=== PATIENT | male | born 1940 | race Caucasian/White ===

== ENCOUNTER 2019-11-30 12:00 | Emergency (ER) | payer MEDICARE, BC, SELFPAY ==
[2019-11-30 12:06] VITALS: BP 156/100; PULSE 100; RESP 18; TEMP 37.3; O2SAT 99
--- NOTE | 2019-11-30 13:17 | ED.LOWEXIN ---
HPI - Extremity Injury (Lower) General Chief Complaint: Extremity Injury, Lower Stated Complaint: laceration to right leg Time Seen by Provider: 11/30/19 12:08 Source: patient Mode of arrival: ambulatory Limitations: no limitations History of Present Illness HPI Narrative: This patient is an 78 year old male who presents for evaluation of right lower extremity laceration. He states he accidentally sprayed his left with water from a continuous washer operator. She was unable to get the bleeding to stop so he came to the ER . He states his tetanus is up to date. He has minimal pain. He is able to walk without pain. Related Data Allergies Allergy/AdvReac Type Severity Reaction Status Date / Time No Known Allergies Allergy Unverified 02/27/19 17:18 Review of Systems Review of Systems: All systems reviewed & are unremarkable except as noted in HPI and below Constitutional: Constitutional: Denies chills and Denies fever(s) Neurologic: Denies dizziness, Denies focal weakness and Denies numbness PMFSH Social History Social History Smoking status: Former smoker Second hand tobacco smoke exposure: No Smoking end date: 04/12/77 Alcohol intake: current Exam Const: General: no acute distress and alert Orientation/consciousness: patient oriented x3 Eyes: EOM: EOMs intact bilaterally Resp: Effort & Inspection: normal respiratory effort Cardio: Peripheral pulses: Peripheral pulses 2+ throughout, posterior tibial pulses present bilateral and dorsalis pedis present bilateral Skin: Other: right leg with zigzag linear superficial laceration. There are 2 small areas that are a little deeper into dermis both 1 cm. no acute bleeding. Neuro: General: patient oriented x3 and moves all extremities Extrem: General: no pedal edema Other: FROM of all extremities Course Reevaluation(s) Reevaluation #1: I discussed with patient wound management. He did not want to sutures so I bandaged with steri strips, 3,4 Date: 11/30/19 Time: 13:17 Vital Signs Vital signs: Vital Signs Temperature 99.2 F 11/30/19 12:06 Pulse Rate 100 11/30/19 12:06 Respiratory Rate 18 11/30/19 12:06 Blood Pressure 156/100 H 11/30/19 12:06 Pulse Oximetry 99 11/30/19 12:06 Temperature 99.2 F 11/30/19 12:06 Pulse Rate 78 11/30/19 13:33 Respiratory Rate 20 08/20/20 13:33 Blood Pressure 148/73 H 11/30/19 13:33 Pulse Oximetry 99 11/30/19 13:33 Procedures Laceration Laceration 1: Date: 11/30/19 Time: 13:00 Site: lower extremity (right) Size (cm): 1 Description: linear Depth: simple, single layer Local Anesthetic: none ====== Skin Level ====== Skin layer closed with: steri strips (3) ====== Subcutaneous Layer ====== ====== Muscle Layer ====== ====== Tendon Layer ====== Laceration 2: Date: 11/30/19 Time: 13:00 Site: lower extremity Side (If applicable): right Description: linear Depth: simple, single layer Local Anesthetic: none ====== Skin Level ====== Skin layer closed with: steri strips (4) ====== Subcutaneous Layer ====== ====== Muscle Layer ====== ====== Tendon Layer ====== Discharge Plan Discharge Clinical Impression: Laceration of leg, right, multiple sites Qualifiers: Encounter type: initial encounter Qualified Code(s): S81.811A - Laceration without foreign body, right lower leg, initial encounter Patient Disposition: Home, Self-Care Condition: Stable Instructions: Laceration (ED), Laceration Without Closure (ED), Acute Wounds (ED) Additional Instructions: Today you were evaluated for a laceration to your leg. The area with the steri strips you can keep on for 5-7 days. The area with vaseline gauze you keep clean for soap and water daily and redress if need. Watch for signs of infection. Prescriptions: No Action allopurinol 300 mg t
[2019-11-30 13:33] VITALS: BP 148/73; PULSE 78; RESP 20; O2SAT 99
== END 2019-11-30 13:35 | disposition home or self-care (01) ==
PROVIDERS: Emergency Provider General Practice; PCP Internal Medicine
DX: S81.811A Laceration without foreign body, right lower leg, initial encounter (principal); Z87.891 Personal history of nicotine dependence; W29.8XXA Contact with other powered hand tools and household machinery, initial encounter
CPT/HCPCS: 99282

== ENCOUNTER 2022-05-29 08:37 | Outpatient (CLI) | payer MEDICARE, SELFPAY ==
[2022-05-29 11:20] LABS: Alanine Aminotransferase 24 U/L (6-50); Alkaline Phosphatase 66 U/L (38-126); Anion Gap 4 mmol/L (8-16); Aspartate Amino Transferase 30 U/L (17-59); Blood Urea Nitrogen 19 mg/dL (9-20); Calcium 7.7 mg/dL (8.4-10.2); Carbon Dioxide 28 mmol/L (22-30); Chloride 105 mmol/L (98-107); Estimated Glomerular Filt Rate > 60; Glucose 103 mg/dL (65-110); Potassium 3.6 mmol/L (3.4-5.0); Sodium 137 mmol/L (137-145); Uric Acid 6.8 mg/dL (3.5-8.5)
[2022-06-01 13:30] LABS: Cholesterol 87 mg/dL (0-200); HDL Direct 19 mg/dL; Triglycerides 97 mg/dL (<150)
[2022-06-01 13:41] LABS: LDL Cholesterol Direct 51 mg/dL
== END 2022-05-29 08:38 | disposition home or self-care (01) ==
LOC: ANHGOSHLAB 08:38
PROVIDERS: PCP Family Medicine; Visit Provider Family Medicine
DX: Z13.228 Encounter for screening for other metabolic disorders (principal); M10.9 Gout, unspecified; I10 Essential (primary) hypertension
CPT/HCPCS: 36415; 80053; 80061; 84550

== ENCOUNTER 2022-12-28 17:12 | Emergency (ER) | payer MEDICARE, SELFPAY ==
--- NOTE | ~2022-12-28 | XR_ITS ---
EXAMINATION: XR foot RT min 3V DATE: 12/28/2022 17:40 INDICATION: Right foot injury. TECHNIQUE: 4 views of right foot were obtained. COMPARISON: None. FINDINGS: There is moderate hallux valgus. No fracture. There is mild osteoarthritis of some of the i nterphalangeal joints and midfoot joints. There are enthesophytes at the posterior and plantar aspect s of calcaneal tuberosity. IMPRESSION: 1. Mild polyarticular osteoarthritis. 2. Moderate hallux lungs. Reviewed, dictated and finalized at location E.
--- NOTE | ~2022-12-28 | XR_ITS ---
EXAMINATION: XR knee RT 3V DATE: 12/28/2022 17:40 INDICATION: Right knee injury. TECHNIQUE: 3 views of right knee were obtained. COMPARISON: None. FINDINGS: Bone alignment is normal. There is a possible fracture of medial aspect of medial tibial pl ateau. There is mild tricompartmental osteoarthritis. There is chondrocalcinosis of the menisci. Ther e are dystrophic calcifications about the knee joint capsule. There is a small knee joint effusion. IMPRESSION: 1. Possible fracture of medial aspect of medial tibial plateau. Correlate for focal tenderness. 2. Mild right knee osteoarthritis. 3. Small right knee joint effusion. Reviewed, dictated and finalized at location E. IMPRESSION: 1. Possible fracture of medial aspect of medial tibial plateau. Correlate for f ocal tenderness. 2. Mild right knee osteoarthritis. 3. Small right knee joint effusion.
--- NOTE | ~2022-12-28 | XR_ITS ---
EXAMINATION: XR ankle RT min 3V DATE: 12/28/2022 17:40 INDICATION: Right ankle injury and lateral pain. TECHNIQUE: 4 views of right ankle were obtained. COMPARISON: Right ankle radiographs 11/20/2005 FINDINGS: Bone alignment is normal. No fracture. There is mild midfoot osteoarthritis. There is mild ankle joint osteoarthritis. There are enthesophytes at the posterior and plantar aspects of calcaneal tuberosity. IMPRESSION: 1. Mild polyarticular osteoarthritis. Reviewed, dictated and finalized at location E.
--- NOTE | 2022-12-28 17:28 | ED.LOWEXIN ---
HPI - Extremity Injury (Lower) General Chief Complaint: Extremity Injury, Lower Stated Complaint: Pain in knee and ankle Time Seen by Provider: 12/28/22 17:28 Source: patient Mode of arrival: ambulatory Limitations: no limitations History of Present Illness HPI Narrative: Patient is an 82-year-old male that presents with right knee and ankle pain after rolling ankle out and to sting leg. Patient reports pain to lateral knee and ankle. Patient states he has a primary care provider appointment tomorrow and would just like to have x-rays to discuss fall with primary doctor. Patient able to walk with a cane but it is painful. Denies any numbness, tingling or weakness. Related Data Home Medications Medication Instructions Recorded Confirmed indomethacin 25 mg capsule 25 mg PO TID PRN 05/21/22 05/21/22 Allergies Allergy/AdvReac Type Severity Reaction Status Date / Time No Known Allergies Allergy Verified 05/21/22 10:55 Review of Systems Review of Systems: All systems reviewed & are unremarkable except as noted in HPI and below Constitutional: Constitutional: Denies body ache(s), Denies chills, Denies fatigue, Denies fever(s), Denies headache(s), Denies malaise and Denies weakness Eyes: Eyes: Denies blurry vision, Denies irritation and Denies loss of vision ENT: Denies otalgia, Denies headache(s), Denies nasal discharge, Denies sinus pain and Denies sore throat Cardiovascular: Cardiovascular: Denies chest pain, Denies irregular heart rhythm and Denies dyspnea Respiratory: Respiratory: Denies dyspnea Gastrointestinal: Gastrointestinal: Denies abdominal pain, Denies melena, Denies hematochezia, Denies diarrhea, Denies nausea and Denies vomiting Musculoskeletal: Musculoskeletal: Denies back pain, Denies myalgias and Reports arthralgias Integumentary/Breasts: Skin/Breast: Denies pruritus and Denies rash Neurologic: Denies headache(s), Denies loss of vision and Denies weakness Psychiatric: Psychiatric: Reports no additional psychiatric complaints Endocrine: Endocrine: Denies fatigue PMFSH Family History Family History Sibling Patient's sister is in good health Family history of cardiovascular disease, Onset Age: 42 Mother Family history of malignant neoplasm, Onset Age: 72 Father Family history of malignant neoplasm, Onset Age: 75 Social History Social History Smoking status: Current every day smoker Tobacco type: cigars Second hand tobacco smoke exposure: No Smoking end date: 04/12/77 Alcohol intake: current Substance use: never Substance use type: does not use Lack of Transportation: No Lack of Food: Never True Current Housing: I Have Housing Concerned About Future Housing: No Difficulty Paying Gas/Electric Bills: No Difficulty Paying for Meds: No Currently Unemployed: No Education: Master's Degree or Higher Difficulty w/ Childcare or Family Care: No Living arrangements: with family Occupation/Education: retired Gender identity (if verbalized by the patient): Male Sexual Orientation (if Verbalized by the Patient): Straight or Heterosexual Agree to blood products: Yes Comments At time of signature, agree with nursing past medical, surgical, social and family history. There is no relevant family history pertinent to the presenting complaint. Exam Const: General: cooperative, healthy appearing, comfortable, no acute distress and well nourished Nutritional Appearance: well nourished Orientation/consciousness: patient oriented x3 Limitations: no limitations HENMT: Head: normal to inspection, normocephalic and atraumatic Ears: hearing grossly normal bilaterally and external ears normal Face/Nose/Sinus: Normal external nose present, normal facial exam and face symmetric Face and sinus: normal facial exam and face symm
[2022-12-28 17:44] VITALS: BP 146/97; PULSE 85; RESP 16; TEMP 36.8; O2SAT 100
== END 2022-12-28 18:18 | disposition home or self-care (01) ==
PROVIDERS: Emergency Provider Nurse Practitioner Family; PCP Family Medicine
DX: S93.401A Sprain of unspecified ligament of right ankle, initial encounter (principal); S96.911A Strain of unspecified muscle and tendon at ankle and foot level, right foot, initial encounter; X50.9XXA Other and unspecified overexertion or strenuous movements or postures, initial encounter; M25.561 Pain in right knee; M10.9 Gout, unspecified; M19.90 Unspecified osteoarthritis, unspecified site
CPT/HCPCS: 73562; 73610; 73630; 99214; G0463; L1830

== ENCOUNTER 2023-02-23 14:54 | Outpatient (CLI) | payer MEDICARE, SELFPAY ==
--- NOTE | ~2023-02-23 | XR_ITS ---
XR wrist RT min 3V DATE: 02/23/2023 15:02 INDICATION: Right wrist injury TECHNIQUE: 3 views of right wrist COMPARISON: None FINDINGS: There is diffuse osteopenia. There is prominent chondrocalcinosis at the triangular cartilage and multiple carpal joints. There is severe osteoarthritic change at the first carpometacarpal joint. There is moderate osteophyt ic change at the first carpophalangeal joint. There is chondrocalcinosis and mild osteoarthritis at t he second through fifth metacarpophalangeal joints. A transverse lucency through the waist of the navicular bone is suggested on the AP view. Navicular w aist fracture is not excluded. Consider CT or MR wrist examination to further evaluate possible navic ular fracture. 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
== END 2023-02-23 14:55 | disposition home or self-care (01) ==
LOC: ANHASCIMG 14:55
PROVIDERS: PCP Family Medicine; Visit Provider Family Medicine
DX: M11.231 Other chondrocalcinosis, right wrist (principal); M11.241 Other chondrocalcinosis, right hand; M19.041 Primary osteoarthritis, right hand; M85.80 Other specified disorders of bone density and structure, unspecified site
CPT/HCPCS: 73110

== ENCOUNTER 2023-03-13 12:42 | Emergency (ER) | payer MEDICARE, SELFPAY ==
--- NOTE | ~2023-03-13 | XR_ITS ---
XR chest 2V 03/13/2023 13:13 Indication: Cough and shortness of breath Procedure: 2 view chest Comparison: 02/27/2019 Findings: Masslike density left mid thorax posteriorly and laterally. There is airspace disease of th e left mid and lower lung. Right lung clear. No pneumothorax. No acute osseous abnormality. Impression: 1: Masslike density left mid and lower thorax which appears to be pleural-based. Differential diagnos is includes loculated effusion and malignancy. Consider correlation with contrast-enhanced CT chest. 2: Left basilar airspace consolidation may represent compressive atelectasis and/or pneumonia. Reviewed, dictated and finalized at location A. CTION MACHINE SETTER Impression: 1: Masslike density left mid and lower thorax which appears to be pleural-based . Differential diagnosis includes loculated effusion and malignancy. Consider c orrelation with contrast-enhanced CT chest. 2: Left basilar airspace consolidation may represent compressive atelectasis a nd/or pneumonia.
[2023-03-13 12:54] VITALS: BP 134/77; PULSE 86; RESP 16; TEMP 36.5; O2SAT 95
[2023-03-13 13:23] VITALS: PULSE 95; O2SAT 97
--- NOTE | 2023-03-13 13:32 | ED.URI ---
HPI - URI/Sore Throat General Chief Complaint: Upper Respiratory Infection Stated Complaint: Flu Time Seen by Provider: 03/13/23 13:45 Source: patient, family, RN notes reviewed and old records reviewed Mode of arrival: ambulatory (placed in wheelchair) Limitations: no limitations History of Present Illness HPI Narrative: 82 year old male accompanied by family with complaints of being weak with cough and also having some increased dyspnea with activity for the past 4 days. Patient reports that he had to stop on the way in here to rest he was short of breath. Patient reports that he has some pain in the left lateral rib area that wrap around his side to the back. Patient reports that he has had a productive cough of yellow mucous and today he noted some maroon colored drainage also today X4 times. Patient reports he was seen recently for possible tibia plateau fracture that orthopedic reported was not a fracture and did receive some physical therapy. Patient recent had a fall also and hurt his right wrist and is wearing brace to his wrist and hand. MD elicited complaint: cough and other (dyspnea) Onset (ago): day(s) (symptoms reported for 4 days) Description of mucous: yellow and other (maroon colored ) Able to tolerate fluids by mouth: Yes Treatments prior to arrival: other (tramadol) Related Data Home Medications Medication Instructions Recorded Confirmed indomethacin 25 mg capsule 25 mg PO TID PRN 05/21/22 12/29/22 Allergies Allergy/AdvReac Type Severity Reaction Status Date / Time No Known Allergies Allergy Verified 03/13/23 18:17 Review of Systems Review of Systems: CONSTITUTIONAL: Reports malaise,no chills, sweats, or fever. EYES: Denies visual changes, redness, or discharge. ENT: Reports rhinorrhea, congestion, sinus pain, otalgia and sore throat. CARDIOVASCULAR: Denies chest pain, palpitations, or edema. RESPIRATORY: Reports cough.? Reports dyspnea. GASTROINTESTINAL: Denies abdominal pain, nausea, vomiting, diarrhea SKIN: Denies rash or itching. MUSCULOSKELETAL: Denies myalgia. NEUROLOGIC: Denies headache. All systems reviewed & are unremarkable except as noted in HPI and below PMFSH Past Medical History Medical History (Updated 03/14/23 @ 00:00 by Linda Foley) Gout Surgical History Surgical History (Updated 03/13/23 @ 19:29 by Vandana Patiño NP) History of appendectomy History of weight loss surgery Hx of cataract surgery Family History Family History Sibling Patient's sister is in good health Family history of cardiovascular disease, Onset Age: 42 Mother Family history of malignant neoplasm, Onset Age: 72 Father Family history of malignant neoplasm, Onset Age: 75 Social History Social History Smoking status: Current every day smoker Tobacco type: cigars Second hand tobacco smoke exposure: No Smoking end date: 04/12/77 Alcohol intake: current Substance use: never Substance use type: does not use Lack of Transportation: No Lack of Food: Never True Current Housing: I Have Housing Concerned About Future Housing: No Difficulty Paying Gas/Electric Bills: No Difficulty Paying for Meds: No Currently Unemployed: No Education: Master's Degree or Higher Difficulty w/ Childcare or Family Care: No Living arrangements: with family Occupation/Education: retired Gender identity (if verbalized by the patient): Male Sexual Orientation (if Verbalized by the Patient): Straight or Heterosexual Agree to blood products: Yes Comments At time of signature, agree with nursing past medical, surgical, social and family history. There is no relevant family history pertinent to the presenting complaint Exam Narrative: GENERAL:ill-appearing, well-nourished, and in no acute distress. HEAD: Norm
== END 2023-03-13 14:54 | disposition short-term general hospital (02) ==
PROVIDERS: Emergency Provider Registered Nurse; PCP Family Medicine
DX: R91.8 Other nonspecific abnormal finding of lung field (principal); R06.00 Dyspnea, unspecified; Z20.822 Contact with and (suspected) exposure to COVID-19; Z87.891 Personal history of nicotine dependence; M10.9 Gout, unspecified
CPT/HCPCS: 71046; 87426; 87804; 99213; C9803; G0463

== ENCOUNTER 2023-03-13 15:06 | Emergency (ER) | payer MEDICARE, SELFPAY ==
[2023-03-13] VITALS (37 sets, daily range): BP systolic 63–158; BP diastolic 42–98; PULSE 64–166; RESP 15–29; TEMP 36.3–36.5; O2SAT 91–97
--- NOTE | ~2023-03-13 | CT_ITS ---
EXAMINATION: CT diagnostic chest w con DATE: 03/13/2023 20:08 INDICATION: Masslike density left thorax TECHNIQUE: Computed tomography (CT) of the chest was performed with 75 cc Omnipaque 350 intravenous c ontrast. The dose-length product was 245.79 mGy-cm. Automated exposure control and iterative reconstr uction technique were employed. COMPARISON: Chest x-ray dated 03/13/2023 FINDINGS: Large loculated left pleural effusion. There is left hilar lymphadenopathy. There is airspa ce consolidation, likely compressive atelectasis, although superimposed pneumonia is not excluded. He art size normal. Mild mediastinal lymphadenopathy. Calcified granuloma right lower lobe. IMPRESSION: 1. Large loculated left pleural effusion with underlying airspace consolidation which may represent a telectasis or pneumonia. 2: Mediastinal and left hilar lymphadenopathy, likely reactive. Reviewed, dictated and finalized at location A. AULIC LIFT DRIVER IMPRESSION: 1. Large loculated left pleural effusion with underlying airspace consolidation which may represent atelectasis or pneumonia. 2: Mediastinal and left hilar lymphadenopathy, likely reactive.
--- NOTE | 2023-03-13 18:15 | ED.SOB ---
HPI - SOB/Dyspnea General Chief Complaint: Recheck/Abnormal Lab/Rx Stated Complaint: sent for ct scan/ low o2 Time Seen by Provider: 03/13/23 18:14 Source: patient Limitations: no limitations History of Present Illness HPI Narrative: This is an 82 yo male who presents from urgent care with concern for findings on a CXR and low Spo2; recommending CT scan. He states for the past 4 days he has had decreased strength. This morning, he had a cough productive of yellow sputum initially. He got 3 shots 3 months ago (covid, RSV, and flu). Denies any chest pain. Deltaly smokes cigars daily but not for the past 5 days. He is having to ambulate with a cane. He had a subjective fever yesterday and was diaphoretic. Denies lower extremity edema. Has been taking ibuprofen at home. Related Data Home Medications Medication Instructions Recorded Confirmed indomethacin 25 mg capsule 25 mg PO TID PRN 05/21/22 12/29/22 Allergies Allergy/AdvReac Type Severity Reaction Status Date / Time No Known Allergies Allergy Verified 03/13/23 18:17 [facility] Past Medical History Medical History (Updated 03/15/23 @ 02:22 by Ernestine Garcia MD) Gout Surgical History Surgical History (Updated 03/13/23 @ 19:29 by Vandana Patiño NP) History of appendectomy History of weight loss surgery Hx of cataract surgery Family History Family History Sibling Patient's sister is in good health Family history of cardiovascular disease, Onset Age: 42 Mother Family history of malignant neoplasm, Onset Age: 72 Father Family history of malignant neoplasm, Onset Age: 75 Social History Social History (Updated 03/15/23 @ 02:04 by Ernestine Garcia MD) Social History: Former long distance runner Smoking status: Current every day smoker Tobacco type: cigars Second hand tobacco smoke exposure: No Smoking end date: 04/12/77 Alcohol intake: current Substance use: never Substance use type: does not use Lack of Transportation: No Lack of Food: Never True Current Housing: I Have Housing Concerned About Future Housing: No Difficulty Paying Gas/Electric Bills: No Difficulty Paying for Meds: No Currently Unemployed: No Education: Master's Degree or Higher Difficulty w/ Childcare or Family Care: No Living arrangements: with family Occupation/Education: retired Gender identity (if verbalized by the patient): Male Sexual Orientation (if Verbalized by the Patient): Straight or Heterosexual Agree to blood products: Yes Exam Narrative: GENERAL: thin male; in no acute distress but appears unwell. HEAD: Normocephalic, atraumatic. EYES: Grossly normal. Non icteric. ENT: Nares clear, no rhinorrhea or epistaxis. NECK: Supple. CHEST: Diminished at the base but otherwise clear to auscultation. No respiratory distress. HEART: Regular rate and rhythm. ABDOMEN: Soft, nontender, nondistended. EXTREMITIES: Normal range of motion. No edema. SKIN: Warm, dry, no rash. NEURO: No focal deficits. Alert and oriented x3. PSYCH: Normal mood and affect. Course Vital Signs Vital signs: Vital Signs Temperature 97.7 F 03/13/23 15:07 Pulse Rate 64 03/13/23 15:07 Respiratory Rate 16 03/13/23 15:07 Blood Pressure 142/63 H 03/13/23 15:07 Pulse Oximetry 95 03/13/23 15:07 Temperature 97.3 F L 03/13/23 19:37 Pulse Rate 111 H 03/14/23 01:16 Respiratory Rate 21 H 03/14/23 01:01 Blood Pressure 140/56 L 03/14/23 01:16 Pulse Oximetry 95 03/14/23 01:16 Oxygen Delivery Room Air 03/13/23 18:08 Transfer Transfered to: [facility] Transfer comments: see MDM/note MDM - SOB/Dyspnea MDM Narrative Medical decision making narrative: Patient presents with concern for findings on CXR at urgent care in addition to low SpO2. He has been complainign of decreased strength for the past 4 days and a co
--- NOTE | 2023-03-13 18:29 | ECG_ITS ---
Measurements Intervals [place] Rate: 124 P: [place]: 0 QRS: -47 QRSD: 150 T: 0 QT: 325 QTc: 468 Interpretive Statements SINUS TACHYCARDIA WITH PREMATURE ATRIAL CONTRACTIONS WITH INTERMITTENT SUPRAVENTRICULAR TACHYCARDIA BASELINE ARTIFACT RIGHT BUNDLE BRANCH BLOCK LEFT ANTERIOR FASCICULAR BLOCK [QRS AXIS <= -45, QR IN I, RS IN II] MODERATE VOLTAGE CRITERIA FOR LVH, CONSIDER NORMAL VARIANT ABNORMAL ECG NO PREVIOUS ECG AVAILABLE FOR COMPARISON Electronically Signed On 03-14-2023 11:51:37 AIRCRAFT MAINTENANCE DIRECTOR by Ric Kovacs M.D.
[2023-03-13 18:47] LABS: Alveolar/Arterial O2 Gradient 54.6 mmHg; Base Excess ABG -1.9 mEq/l (+/-2.0); Fractional Inspired Oxygen 21 %; HCO3 ABG 19.9 mEq/l (22.0-26.0); Oxygen Content ABG 16.4 %vol (16.0-22.0); Oxygen Saturation ABG 94.4 % (95.0-100.0); Oxyhemoglobin 90.1 % THb (90.0-100.0); PCO2 ABG 26.2 mmHg (35.0-45.0); PO2 ABG 63.8 mmHg (80.0-100.0); PO2 FiO2 Ratio Arterial Blood 3.04 %; Total Hemoglobin 12.9 g/dL (12.0-18.0); pH ABG 7.498 (7.350-7.450)
[2023-03-13 18:48] LABS: Device ROOM AIR; Modified Allen's Test Pass; Site Drawn LEFT RADIAL
[2023-03-13 19:10] LABS: Basophils Absolute Auto 0.1 K/mm3 (0.0-0.1); Basophils Percent Auto 0.3 % (0.2-1.2); Eosinophils Absolute Auto 0.1 K/mm3 (0-0.3); Eosinophils Percent Auto 0.3 % (0-4.4); Hematocrit 39.5 % (42.0-52.0); Hemoglobin 13.2 g/dL (14.0-18.0); Immature Granulocyte Absolute 0.18 K/mm3 (0.00-0.031); Immature Granulocyte Percent A 0.9 % (0-0.5); Lymphocytes Absolute Auto 0.28 K/mm3 (0.9-3.2); Lymphocytes Percent Auto 1.5 % (18.3-44.2); Mean Corpuscular HGB Conc 33.4 g/dl (32-36); Mean Corpuscular Hemoglobin 31.7 pg (26-34); Mean Corpuscular Volume 94.7 fl (80-100); Mean Platelet Volume 10.3 fl (7.4-10.4); Monocytes Absolute Auto 1.2 K/mm3 (0.1-0.6); Monocytes Percent Auto 6.3 % (2.6-8.5); Neutrophils Absolute Auto 17.5 K/mm3 (1.3-6.7); Neutrophils Percent Auto 90.7 % (45.5-73.1); Platelet Count Result 198 k/mm3 (150-375); Red Blood Count 4.17 M/mm3 (4.6-6.20); White Blood Count 19.3 K/mm3 (4.5-10.0)
[2023-03-13 19:23] LABS: Alanine Aminotransferase 30 U/L (6-50); Albumin Level 3.6 g/dL (3.5-5.1); Alkaline Phosphatase 102 U/L (38-126); Anion Gap 13 mmol/L (8-16); Aspartate Amino Transferase 49 U/L (17-59); Bilirubin,Total 1.7 mg/dL (0.2-1.3); Blood Urea Nitrogen 34 mg/dL (9-20); Calcium 7.8 mg/dL (8.4-10.2); Carbon Dioxide 22 mmol/L (22-30); Chloride 96 mmol/L (98-107); Creatine Kinase 53 U/L (55-170); Estimated CRCL calculation 34 ml/min; Estimated Glomerular Filt Rate 45; Glucose 103 mg/dL (65-110); Lipase 20 U/L (23-300); Sodium 131 mmol/L (137-145)
[2023-03-13] MEDS: LACTATED RINGERS 1,000 ML 999 ML IV CONT (19:30)
[2023-03-13] MEDS: MORPHINE SULFATE (*CRX) 2 MG/ML INJ IV PUSH (19:30)
[2023-03-13 19:37] LABS: Troponin I 0.037 ng/mL (0.000-0.034)
--- NOTE | 2023-03-13 19:40 | PC.NURSE ---
This RN took over care of pt @191
[2023-03-13] MEDS: dilTIAZem HCl INJ 25 MG/5 ML VIAL 20 MG IV PUSH (19:53)
[2023-03-13] MEDS: SODIUM CHLORIDE 0.9% IV 1,000 ML 999 ML IV CONT (20:31)
[2023-03-13] MEDS: POTASSIUM PHOS/SODIUM PHOS 250 MG TABLET PO (20:31)
[2023-03-13] MEDS: dilTIAZem HCl INJ 25 MG/5 ML VIAL 30 MG IV PUSH (21:36)
[2023-03-13] MEDS: PIPERACILLN/TAZ 3.375GM/NS50ML 3.375 GM/50 ML BAG IVPB (21:53)
[2023-03-13] MEDS: MAGNESIUM SULF 2 GM/WATER 50ML 2 GM/50 ML BAG IVPB (21:58)
[2023-03-13] MEDS: dilTIAZem HCL 12 HR 60 MG CAP.12HR PO (22:26)
--- NOTE | 2023-03-13 22:26 | PC.NURSE ---
Vitals upon giving diltiazem 60mg PO were 137 HR, 91% on room air, 28 RR, and BP of 127/112
[2023-03-13 22:30] LABS: Anion Gap 15 mmol/L (8-16); Blood Urea Nitrogen 32 mg/dL (9-20); Calcium 7.1 mg/dL (8.4-10.2); Carbon Dioxide 18 mmol/L (22-30); Chloride 99 mmol/L (98-107); Estimated CRCL calculation 42 ml/min; Estimated Glomerular Filt Rate 58; Glucose 99 mg/dL (65-110); Magnesium 1.6 mg/dL (1.6-2.3); Sodium 132 mmol/L (137-145)
[2023-03-13] MEDS: MAGNESIUM SULF 1 GM/D5W 100 ML 1 GM/100 ML BAG IVPB (23:09)
[2023-03-13] MEDS: CALCIUM/VITAMIN D 250 MG TABLET 2 TABLET PO (23:16)
[2023-03-14] VITALS (13 sets, daily range): BP systolic 108–140; BP diastolic 56–99; PULSE 89–142; RESP 21–25; O2SAT 91–95
--- NOTE | 2023-03-14 00:37 | PC.NURSE ---
Pt accepted @[facility], accepting provider Dr. Call. Report called to Daysi Leon at 0030. Transport is set to arrive by 0130
[2023-03-14 00:49] LABS: MRSA (PCR) NOT DETECTED (NOT DETECTE)
[2023-03-14] MEDS: KCL 20 MEQ/SW 100 ML 100 ML 50 MEQ IVPB (01:12)
[2023-03-14] MEDS: SODIUM CHLORIDE 0.9% IV 500 ML 999 ML IV CONT (01:20)
== END 2023-03-14 01:51 | disposition short-term general hospital (02) ==
PROVIDERS: Emergency Provider Student in an Organized Health Care Education/Training Program; PCP Family Medicine
DX: I48.91 Unspecified atrial fibrillation (principal); E83.51 Hypocalcemia; E87.1 Hypo-osmolality and hyponatremia; E87.6 Hypokalemia; J90 Pleural effusion, not elsewhere classified; M10.9 Gout, unspecified; Z98.49 Cataract extraction status, unspecified eye; F17.290 Nicotine dependence, other tobacco product, uncomplicated; R91.8 Other nonspecific abnormal finding of lung field
CPT/HCPCS: 36415; 36600; 71046; 71260; 80048; 80053; 82550; 82805; 83690; 83735; 84443; 84484; 85025; 87040; 87426; 87641; 87804; 93005; 96361; 96365; 96367; 96375; 96376; 99285; A9270; C9803; J2270; J2543; J3370; J3475; J3480; J7030; J7040; J7120; Q9967

== ENCOUNTER 2023-03-25 09:25 | Outpatient (CLI) | payer MEDICARE, SELFPAY ==
[2023-03-25 20:05] LABS: Anion Gap 4 mmol/L (8-16); Blood Urea Nitrogen 9 mg/dL (9-20); Calcium 7.3 mg/dL (8.4-10.2); Carbon Dioxide 29 mmol/L (22-30); Chloride 105 mmol/L (98-107); Estimated Glomerular Filt Rate > 60; Glucose 99 mg/dL (65-110); Potassium 3.3 mmol/L (3.4-5.0); Sodium 138 mmol/L (137-145)
[2023-03-25 20:32] LABS: Basophils Absolute Auto 0.1 K/mm3 (0.0-0.1); Basophils Percent Auto 0.7 % (0.2-1.2); Eosinophils Absolute Auto 0.1 K/mm3 (0-0.3); Eosinophils Percent Auto 0.9 % (0-4.4); Hematocrit 32.8 % (42.0-52.0); Hemoglobin 10.4 g/dL (14.0-18.0); Immature Granulocyte Absolute 0.05 K/mm3 (0.00-0.031); Immature Granulocyte Percent A 0.5 % (0-0.5); Lymphocytes Absolute Auto 0.79 K/mm3 (0.9-3.2); Mean Corpuscular HGB Conc 31.7 g/dl (32-36); Mean Corpuscular Hemoglobin 30.9 pg (26-34); Mean Corpuscular Volume 97.3 fl (80-100); Mean Platelet Volume 9.9 fl (7.4-10.4); Monocytes Absolute Auto 0.6 K/mm3 (0.1-0.6); Monocytes Percent Auto 5.8 % (2.6-8.5); Neutrophils Absolute Auto 8.3 K/mm3 (1.3-6.7); Neutrophils Percent Auto 84.1 % (45.5-73.1); Platelet Count Result 348 k/mm3 (150-375); Red Blood Count 3.37 M/mm3 (4.6-6.20); Red Cell Distribution Width 14.4 % (11.5-14.5); White Blood Count 9.9 K/mm3 (4.5-10.0)
== END 2023-03-25 09:26 | disposition home or self-care (01) ==
LOC: ANHGOSHLAB 09:26
PROVIDERS: PCP Family Medicine; Visit Provider Family Medicine
DX: E87.6 Hypokalemia (principal); R53.83 Other fatigue
CPT/HCPCS: 36415; 80048; 85025

== ENCOUNTER 2023-04-13 08:44 | Emergency (ER) | payer MEDICARE, SELFPAY ==
--- NOTE | ~2023-04-13 | XR_ITS ---
Left Knee Technique: AP, lateral, and sunrise views were obtained. Clinical History: Pain Findings: No fracture or dislocation is seen. There is medial compartment narrowing, with moderate me dial and lateral osteophyte formation. There is minimal patellar spurring. There is chondrocalcinosis of the menisci. No joint effusion is seen. 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 Reviewed, dictated and finalized at location M. ING FLOOR WORKER Impression: Tricompartmental osteoarthritis, as detailed above, worst in the medial compart ment. Chondrocalcinosis of the menisci.
--- NOTE | 2023-04-13 09:04 | ED.EXTPRO ---
HPI - Extremity Problem General Chief complaint: Extremity Injury, Lower Stated complaint: Swollen left knee Time Seen by Provider: 04/13/23 09:30 Source: patient and RN notes reviewed Mode of arrival: ambulatory Limitations: no limitations History of Present Illness HPI Narrative: 82-year-old male presents with concern for left knee pain and swelling. Reports symptoms started 2 days ago without known injury or trauma. Reports hit feels like his knee ?gives out? while he is standing. He denies calf redness, warmth, swelling, tenderness. Reports his knee feels slightly warm. He reports he has been using walker for other problems. Patient was recently hospitalized. He denies a new chest pain, shortness of breath. He denies swelling distal to the knee. Denies open skin MD Complaint: extremity pain and extremity swelling Related Data Home Medications Medication Instructions Recorded Confirmed apixaban 5 mg tablet 5 mg PO BID 03/25/23 04/13/23 metoprolol tartrate 50 mg tablet 50 mg PO DAILY 04/13/23 04/13/23 Allergies Allergy/AdvReac Type Severity Reaction Status Date / Time No Known Allergies Allergy Verified 04/13/23 09:33 Review of Systems Review of Systems: CONSTITUTIONAL: Denies malaise, chills, sweats, or fever. CARDIOVASCULAR: Denies chest pain, palpitations, or edema. RESPIRATORY: Denies cough or dyspnea. SKIN: Denies rash or itching, bruising, redness MUSCULOSKELETAL: Reports left knee pain and swelling NEUROLOGIC: Denies numbness, weakness All systems reviewed & are unremarkable except as noted in HPI and below PMFSH Past Medical History Medical History Gout Surgical History Surgical History History of appendectomy History of weight loss surgery Hx of cataract surgery Family History Family History Sibling Patient's sister is in good health Family history of cardiovascular disease, Onset Age: 42 Mother Family history of malignant neoplasm, Onset Age: 72 Father Family history of malignant neoplasm, Onset Age: 75 Social History Social History Social History: Former long distance runner Smoking status: Former smoker Tobacco type: cigars Second hand tobacco smoke exposure: No Smoking end date: 04/12/77 Alcohol intake: current Substance use: never Substance use type: does not use Lack of Transportation: No Lack of Food: Never True Current Housing: I Have Housing Concerned About Future Housing: No Difficulty Paying Gas/Electric Bills: No Difficulty Paying for Meds: No Currently Unemployed: No Education: Master's Degree or Higher Difficulty w/ Childcare or Family Care: No Living arrangements: with family Occupation/Education: retired Gender identity (if verbalized by the patient): Male Sexual Orientation (if Verbalized by the Patient): Straight or Heterosexual Agree to blood products: Yes Comments At time of signature, agree with nursing past medical, surgical, social and family history. There is no relevant family history pertinent to the presenting complaint Exam Narrative: GENERAL: Well-appearing, well-nourished, and in no acute distress. HEAD: Normocephalic, atraumatic. EYES: PERRLA, conjunctivae clear NECK: Supple. CHEST: Speaks in full sentences. No respiratory distress. HEART: Regular rate and rhythm. Normal and equal peripheral pulses. EXTREMITIES: Left knee has normal sensation, grossly normal range of motion. Mild knee edema without erythema, warmth, open skin, ecchymosis. Normal sensation with sensitivity to light touch and pain. Lateral knee tenderness. No open wounds, no skin tenting, no devitalized tissue or atrophy, no trophic changes, no obvious deformity, alignment normal, n
[2023-04-13 09:08] VITALS: BP 148/82; PULSE 89; RESP 13; TEMP 36.8; O2SAT 100
== END 2023-04-13 10:35 | disposition home or self-care (01) ==
PROVIDERS: Emergency Provider Nurse Practitioner; PCP Family Medicine
DX: M11.262 Other chondrocalcinosis, left knee (principal); Z79.01 Long term (current) use of anticoagulants; Z79.899 Other long term (current) drug therapy; Z87.891 Personal history of nicotine dependence
CPT/HCPCS: 73564; 99213; G0463

== ENCOUNTER 2023-05-14 10:16 | Outpatient (CLI) | payer MEDICARE, SELFPAY ==
--- NOTE | ~2023-05-14 | XR_ITS ---
XR chest 2V DATE: 05/14/2023 10:45 INDICATION: Other specified diseases of upper respiratory tract TECHNIQUE: 2 views COMPARISON: 03/13/2023 CT chest FINDINGS: Normal heart size. No hilar or mediastinal enlargement. There is mild elevation of the left diaphragm and mild infiltrate and/or atelectasis at the left lung base, substantially improved since 03/13/2023. The remaining lung hill are clear. There are bilateral calcified hilar nodes and calcified pulmonary granulomas, consistent with old pul monary granulomatous disease. There is diffuse osteopenia. There is degenerative change of the thoracic and lumbar spine. IMPRESSION: Mild residual infiltrate and/or atelectasis in left lower lung, considerably improved sin ce 03/13/2023 Reviewed, dictated and finalized at location B. [employer] COMMUNICATIONS INTERN IMPRESSION: Mild residual infiltrate and/or atelectasis in left lower lung, con siderably improved since 03/13/2023
[2023-05-14 11:39] LABS: SARS-CoV-2 RNA PCR Negative (Negative)
== END 2023-05-14 10:17 | disposition home or self-care (01) ==
LOC: ANHLAB 10:19
PROVIDERS: PCP Family Medicine; Visit Provider Family Medicine
DX: J39.8 Other specified diseases of upper respiratory tract (principal); R68.89 Other general symptoms and signs; R91.8 Other nonspecific abnormal finding of lung field; Z20.822 Contact with and (suspected) exposure to COVID-19
CPT/HCPCS: 71046; 87635

== ENCOUNTER 2023-07-21 14:34 | Outpatient (CLI) | payer MEDICARE, SELFPAY ==
--- NOTE | ~2023-07-21 | CT_ITS ---
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 The dose-length product was 237.70 mGy-cm. Automated exposure control and iterative reconstr uction technique were employed. COMPARISON: CT dated 03/13/2023 FINDINGS: No thoracic lymphadenopathy. There are liver cysts. There are calcified granulomas of the l ungs and spleen. There is significant improvement of left lower lobe consolidation. Elevated left ronnell phragm. Trace left pleural effusion which is significantly decreased compared with prior examination. No large central filling defects in the pulmonary arteries to suggest pulmonary embolism. There is e xtensive calcified lymph nodes in the mediastinum and ebony, consistent with chronic granulomatous dis ease. IMPRESSION: 1. Near complete resolution of left posterior basilar airspace disease, consistent with resolving pne umonia. Residual trace left pleural effusion. Reviewed, dictated and finalized at location A. IMPRESSION: 1. Near complete resolution of left posterior basilar airspace disease, consist ent with resolving pneumonia. Residual trace left pleural effusion.
[2023-07-21 15:10] LABS: Estimated Glomerular Filt Rate > 60
== END 2023-07-21 14:35 | disposition home or self-care (01) ==
PROVIDERS: PCP Family Medicine; Visit Provider Internal Medicine Pulmonary Disease
DX: J86.9 Pyothorax without fistula (principal)
CPT/HCPCS: 71260; Q9967

== ENCOUNTER 2024-09-07 10:56 | Outpatient (CLI) | payer MEDICARE, SELFPAY ==
--- OUTSIDE RECORDS SUMMARY | 2024-09-07 10:08 | XMS_ITS | Referral Summary ---
Author Organization [facility] [id number] [place] [id number] Care Team Providers Care Customs Patrol Officer Name Role Phone Williams Livingston Primary Care Provider [phone] Allergies No known active allergies Medications diclofenac sodium (VOLTAREN) 1 % gel Apply 2 g topically 4 (four) times a day as needed (knee pain) 200 g 1 4 Active potassium chloride 10 mEq/100 mL 2 Active potassium chloride ER 20 mEq CR tablet Take 1 tablet (20 mEq total) by mouth daily 4 Active naproxen (NAPROSYN) 500 mg tabletIndicatio ns:Pain Take 1 tablet (500 mg total) by mouth 2 (two) times a day with meals 60 tablet 2 4 Active Active Problems Problem Noted Date Diagnosed Date Insufficiency of both posterior tibial tendons 0 09/27/2023 Assessment & Plan (09/27/2023 10:00 AM CDT): 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 He is getting some issues with his lesser toes and may find evaluation by our foot and ankle specialist beneficial. He should continue with a well-made new balance extra wide shoes in his custom-made inserts. Venous (peripheral) insufficiency 09/27/2023 Assessment & Plan (09/27/2023 10:01 AM CDT): Patient does have some fluid retention. He had requested naproxen but advised that it was not lazo while taking Eliquis and with fluid retention and may actually exacerbate his swelling. He may find support hose helpful and was given advice on obtaining these. He should keep you abreast of any nonsteroidal anti- inflammatories he is taking and minimize the use normally. Arthritis of right knee 04/29/2023 Assessment & Plan (04/29/2023 11:25 AM LEVI MAKER): 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 He does have chondrocalcinosis which can be seen with thyroid or parathyroid disease causing pseudogout. After reviewing the treatment options patient elected undergo a cortisone injection today to the severity of his symptoms. He tolerated the procedure well. Bifascicular block 04/21/2023 Assessment & Plan (04/21/2023 10:48 AM LEVI MAKER): Stable/asymptomatic. No current indication for pacing. Observation. Localized swelling of left lower extremity 03/21 Moderate protein-calorie malnutrition 03/19/2023 Paroxysmal atrial fibrillation 03/19/2023 Assessment & Plan (04/21/2023 10:47 AM LEVI MAKER): Stable. No recurrence. Recommend rate control, anticoagulation and observation for now. --Continue metoprolol 50 mg BID --Continue apixaban 5 mg BID Pleural effusion 03/14/2023 Atrial fibrillation with RVR 03/14/2023 Cigar smoker 03/14/2023 Renal azotemia 03/14/2023 Hypokalemia 03/14/2023 Right wrist fracture, sequela 03/14/2023 Fracture, Colles, right, closed 03/01/2023 Assessment & Plan (03/01/2023 11:10 AM LEVI MAKER): Patient's CT scan does show evidence of a essentially nondisplaced intra- articular fracture of the distal radius. The patient was placed in a wrist control splint for protection. He should avoid any heavy lifting pushing or pulling with the hand. He can remove the splint for bathing purposes and would encourage stretching. He is return for follow-up films in 3-4 weeks. Arthralgia of right knee 01/06/2023 Social History Tobacco Use Types Packs/Day Years Used Date Smoking Tobacco: Some Days Cigars Tobacco Cessation:Ready to Q uit: Not Asked; Counseling Given: Not Answered [facility] Utilities Answer Date Recorded In the past 12 months has th e electric, gas, oil, or water company threatened to shut off services in your home? No 03/16/2023 Social Connection and Isolat ion Panel [NHANES] Answer Date Recorded In a typical week, how many times do you talk on the phone with family, friends, or neighbors? More than three times a week 03/16/2023 How often do you get togethe r with friends or relatives? Never 03/16/2023 How often do you attend chur ch or baptism services? Never 03/16/2023 Do you belong to any clubs o r organizations such as uatsdin groups, unions, fraternal or athletic groups, or school groups? No 03/16/2023 How often do you attend meet ings of the clubs or organizations you belong to? Never 03/16/2023 Are you , , di vorced, , never , or living with a partner? 03/16/2023 Overall Financial Resource Strain (CARDIA) Answe r Date Recorded How hard is it for you to pa y for the very basics like food, housing, medical care, and heating? Not hard at all 03/16/2023 Hunger Vital Sign Answer Date Recorded Within the past 12 months, y ou worried that your food would run out before you got the money to buy more. Never true 03/16/20 23 Within the past 12 months, t he food you bought just didn't last and you didn't have money to get more. Never true 03/16/2023 PRAPARE - Transportation Answer Date Re corded In the past 12 months, has l ack of transportation kept you from medical appointments or from getting medications? No 08/2022 In the past 12 months, has l ack of transportation kept you from meetings, work, or from getting things needed for daily living? No 03/16/2023 Housing Stability Vital Sign Answer Jeison e Recorded In the last 12 months, was t here a time when you were not able to pay the mortgage or rent on time? No 03/16/2023 In the last 12 months, how many places have you lived? 1 03/16/2023 In the last 12 months, was t here a time when you did not have a steady place to sleep or slept in a halfway (including now)? No 03/16/2023 Personal Safety Answer Date Recorded Have you ever been in or are you currently in a harmful physical or emotional relationship or is someone making you feel afraid or unsafe? Denies 03/14/2023 Sex and Gender Information Value Date Recorded Sex Assigned at Not on file Legal Sex Male 11:26 AM LEVI MAKER Gender Identity Male 02/26/2023 10:32 AM LEVI MAKER Sexual Orientation Straight 04/21/2023 6: 30 AM LEVI MAKER Last Filed Vital Signs Vital Sign Reading Time Taken Comments Blood Pressure 150/70 04/21/2023 10:30 AM LEVI MAKER Pulse 55 04/21/2023 10:30 AM LEVI MAKER Temperature 36.8 C (98.3 F) 03/22/2023 12:18 PM LEVI MAKER Respiratory Rate 18 03/22/2023 12:18 PM LEVI MAKER Oxygen Saturation 99% 04/21/2023 10:30 AM LEVI MAKER Inhaled Oxygen Concentration - - Weight 79.8 kg (176 lb) 09/27/2023 9:01 AM CDT Height 177.8 cm (5' 10) 10/06/2023 11:16 AM CDT Body Mass Index 25.25 09/27/2023 9:01 AM CDT Plan of Treatment Not on file [place] [id number] [place] Advance Directives For more information, please contact: [phone] * Full Code (Latest Code Status on File) Date Activated Date Inactivated Comments 03/14/2023 2:33 AM 03/22/2023 6:09 PM Care Teams Customs Patrol Officer Relationship Specialty Start Date End Date Williams Livingston DO [facility] [address] [address] PCP - General Family Medicine 02/26/23
--- OUTSIDE RECORDS SUMMARY | 2024-09-07 10:08 | XMS_ITS | Clinical Summary ---
Author Organization [facility] Physician Office Building [id number] [place] [id number] Care Team Providers Care Greeting Card Writer Name Role Phone Williams Livingston Primary Care Provider [phone] Allergies No known active allergies Medications diclofenac [...] 04/29/2023 Assessment & Plan (04/29/2023 11:25 AM TECHNICAL OPERATOR): 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 He does have chondrocalcinosis which can be seen with thyroid or parathyroid disease causing pseudogout. After reviewing the treatment options patient elected undergo a cortisone injection today to the severity of his symptoms. He tolerated the procedure well. Bifascicular block 04/21/2023 Assessment & Plan (04/21/2023 10:48 AM TECHNICAL OPERATOR): Stable/asymptomatic. No current indication for pacing. Observation. Localized swelling of left lower extremity 03/21 Moderate protein-calorie malnutrition 03/19/2023 Paroxysmal atrial fibrillation 03/19/2023 Assessment & Plan (04/21/2023 10:47 AM TECHNICAL OPERATOR): Stable. No recurrence. Recommend rate control, anticoagulation and observation for now. --Continue metoprolol 50 mg BID --Continue apixaban 5 mg BID Pleural effusion 03/14/2023 Atrial fibrillation with RVR 03/14/2023 Cigar smoker 03/14/2023 Renal azotemia 03/14/2023 Hypokalemia 03/14/2023 Right wrist fracture, sequela 03/14/2023 Fracture, Colles, right, closed 03/01/2023 Assessment & Plan (03/01/2023 11:10 AM TECHNICAL OPERATOR): Patient's CT scan does show evidence of [...] 3-4 weeks. Arthralgia of right knee 01/06/2023 Surgical History Surgery Date Site/Laterality Comments APPENDECTOMY Family History Medical History Relation Name Comments No Known Problems Father No Known Problems Mother Relation Name Status Comments Father Mother Social History Tobacco Use Types Packs/Day Years Used Date Smoking Tobacco: Some Days Cigars Tobacco Cessation:Ready to Q uit: Not Asked; Counseling Given: Not Answered [facility] Utilities Answer Date Recorded In the past 12 months has th e electric, gas, oil, or water [employer] threatened to shut off services in your [...] often do you attend chur ch or shinto services? Never 03/16/2023 Do you belong to any clubs o r organizations such as jew groups, unions, fraternal or athletic groups, or [...] place to sleep or slept in a prison (including now)? No 03/16/2023 Personal Safety Answer Date Recorded Have you ever been in or are you currently in a harmful physical or emotional relationship or is someone making you feel afraid or unsafe? Denies 03/14/2023 Sex and Gender Information Value Date Recorded Sex Assigned at Not on file Legal Sex Male 11:26 AM TECHNICAL OPERATOR Gender Identity Male 02/26/2023 10:32 AM TECHNICAL OPERATOR Sexual Orientation Straight 04/21/2023 6: 30 AM TECHNICAL OPERATOR Obstetrics History Last Filed Vital Signs Vital Sign Reading Time Taken Comments Blood Pressure 150/70 04/21/2023 10:30 AM TECHNICAL OPERATOR Pulse 55 04/21/2023 10:30 AM TECHNICAL OPERATOR Temperature 36.8 C (98.3 F) 03/22/2023 12:18 PM TECHNICAL OPERATOR Respiratory Rate 18 03/22/2023 12:18 PM TECHNICAL OPERATOR Oxygen Saturation 99% 04/21/2023 10:30 AM TECHNICAL OPERATOR Inhaled Oxygen Concentration - - Weight 79.8 kg (176 lb) 09/27/2023 9:01 AM CDT Height 177.8 cm (5' 10) 10/06/2023 11:16 AM CDT Body Mass Index 25.25 09/27/2023 9:01 AM CDT Plan of Treatment Health Maintenance Due Date Last Done Comments Depression Screening 1940 DTaP/Tdap/Td Vaccine (1 - Tdap) 1949 Hepatitis B Screening 1956 Pneumococcal vaccine 65+ (1 of 2 - PCV) 1957 Zoster Vaccine (1 of 2) 1988 Well Visit 65+ 12/08/2003 Fall Risk Assessment 03/22/2024 03/22/2023 Influenza Vaccine (Season Ended) 2024 03/23/20 13 Insurance [place] Advance Directives For more information, please contact: [phone] * Full Code (Latest Code Status on File) Date Activated Date Inactivated Comments 03/14/2023 2:33 AM 03/22/2023 6:09 PM Care Teams Greeting Card Writer Relationship Specialty Start Date End Date Williams Livingston DO [address] [place] [address] [address] [phone] PCP - General Family Medicine 02/26/23
--- OUTSIDE RECORDS SUMMARY | 2024-09-07 10:08 | XMS_ITS | Data Portability ---
Author Organization [place] - [facility] [employer], Main Office Address [address] [place] [address] Care Team Providers Care Pug Machine Operator Name Role Phone SRIDHAR BOURGEOIS Primary Care Provider SRIDHAR BOURGEOIS Referring Provider [phone] Assessment Encounter Date Assessment Date Assessment LastModified by Organization Details LastModified Time 01/06/2023 01/06/2023 82-year-old male presents for evaluation of his right knee. He has a history of arthritis which in the knee which is longstanding. He had a new injury on 12/28/2022, when he had a fall and had a hyper flexion mechanism injury to his knee. He had pain and swelling, he also had some initial difficulty with ambulation, but has been walking on it recently. At urgent care, he was placed into a knee immobilizer and he is currently using 2 canes. He is currently using wheelchair, but reports he has been able to bear weight and walk on it. Review of systems per patient questionnaire Physical exam: Immobilizer was removed. He presents in a wheelchair with 2 canes. He has some tenderness over the anterior knee, extensor mechanism. Range of motion 0-90, with pain in flexion over the anterior knee. He is able to straight leg raise without extensor lag. He has some tenderness over the mediolateral joint lines. He has stable ligaments. Neurovascular intact. X-rays of the knee were reviewed, demonstrating arthritic changes with chondrocalcinosi s, joint space narrowing, osteophytes. He has fracture through osteophytes on the sides and posteriorly. No tibial plateau fracture seen. We do not see any obvious tibial plateau fracture, although he may have broken off some osteophytes, and he has been bearing weight on it without too much difficulty. We can get rid of the knee immobilizer. We will send to physical therapy to work on range of motion and strengthening. We will also give him a course of meloxicam to help with the pain and swelling. We will see him back in 3 weeks. [email or web address] Not available 01/06/2023 14:17:28 01/27/2023 01/27/2023 82-year-old male presents for evaluation of his right knee. He has a history of arthritis which in the knee which is longstanding. He had an injury on 12/28/2022, when he had a fall and had a hyper flexion mechanism injury to his knee. At his last appointment he was using a wheelchair due to being placed in a knee immobilizer. Today he presents using 1 cane. He states that his knee feels much better since his last visit. He rates this pain a 2/10. Physical therapy and meloxicam were ordered. He states he has not completed physical therapy and is not interested in doing that at this time. He has been taking the meloxicam but is also interested in stopping it. Physical exam: Walking with a cane. He states that is for balance and not for pain. Some pain with palpitation on the lateral side of the knee. No issues with range of motion. Sensation intact. At this time Lito would like to stop taking his meloxicam and work on exercises at home on his own. We discussed that if his pain returns that he should continue the meloxicam and call us about placing a physical therapy order. We also recommend trying Voltaren gel if the pain returns. He is in agreement with this plan. [email or web address] Not available 01/27/2023 14:26:30 Plan of Treatment Reminders Order Date Submit Date Provider Last Modified By Organization Details Last Modified Time Details Appointments None recorded. Lab None recorded. Referral physical therapist referral - Please contact pt to schedule. Thanks [employer] 2022 023 [facility], [address], [place], [address], 15:16:52 Procedures None recorded. Surgeries None recorded. Imaging None recorded. Medication Orders meloxicam 15 mg tablet 2022 023 [email or web address] [id number], [address], [place], [place], [phone], 23:53:09 Patient TargetsNo targets recorded. Patient InstructionsNo instructions recorded. Reason for Referral Physical Therapist Referral for Pain of right knee joint Please contact pt to schedule. Thanks [employer] TREAT Referring Physician: Avila Restrepo, Orthopedic Surgery, Encounter Date: 01/06/2023 Results Created Date Observation Date Name Description Value Unit Range Abnormal Flag Note LastModifiedBy Organization Detail LastModifiedTime 12/31/1912/28/2022 XR, knee, 3 view No observ ation record ed. [email or web address] Not Available 12/12 12:19:27 12/31/19 23 12/28/2022 XR, ankle , 3 or more view No observ ation record ed. [email or web address] Not Available 12/12 12:19:27 12/31/19 23 12/28/2022 XR, foot, 3 or more view No observ ation record ed. [email or web address] Not Available 12/12 12:19:27 03/01/20 23 02/23/2023 XR, wrist , 3 or more view No observ ation record ed. [email or web address] Not Available 02/11 15:02:52 Result Notes None recorded. Problems Name Problem SNOMED Code Status Onset Date Resolution Date Notes Provider Name and Address Organization Details Recorded Time Pain of right knee joint [id number] Active 2022 DONATO [place], [place] [facility] [place] [facility] [facility] 11:54:52 Problem Notes None recorded. Medical Equipment None Reported. Medications Name Sig Start Date Stop Date Status Note LastModified by Organization Details LastModified Time meloxicam 15 mg tablet TAKE 1 TABLET BY MOUTH EVERY DAY 2022 active Not Available Not Available Not Avai lable tramadol 50 mg tablet TAKE 1 TABLET BY MOUTH EVERY 6 HOURS NEEDED FOR PAIN active Not Available Not Available No t Available indomethacin 25 mg capsule TAKE 1 CAPSULE BY MOUTH THREE TIMES DAILY WITH FOOD OR MILK 01/20 completed Not Available Not Available Not Available allopurinol 300 mg tablet TAKE 1 TABLET BY MOUTH DAILY active Not Available Not Available No t Available Vitals Date Recorded Body height Body mass index (BMI) Body weight Provider Name and Address Organization Details Last Updated DateTime 01/06/2023 177.8 cm 26.1 kg/m2 42373.81 g DONATO [place] [facility] [employer] [facility] 01/06/2023 11:52:32 Date Recorded Body height Body mass index (BMI) Body weight Provider Name and Address Organization Details Last Updated DateTime 01/27/2023 177.8 cm 25.8 kg/m2 35840.63 DONATO Lo [facility] 01/27/2023 11:50:48 Social History Question Answer Notes LastModified by Organizat ion Details LastModified Time Tobacco Smoking Status Current Every Day Smoker Emy LynnerDONATO nelli, [facility] [employer] 01/06/2023 11:53:41 What Was The Date Of Your Most Recent Tobacco Screening? 01/06/2023 [email or web address] Information not available 01/06/2023 Sex: Unknown Functional Status Question Answer Note LastModified by Organization D etails LastModified Time What is your level of alcohol consumption? Moderate [email or web address] Information not available 01/06/2023 Mental Status None recorded. Family History Nothing Reported. Medical History No medical history recorded. Past Encounters Encounter ID Performer Location Encounter Start Date Encounter Closed Date Diagnosis/Indication Diagnosis SNOMED-CT Code Diagnosis ICD10 Code Diagnosis Note [id number] Avila Restrepo MD [facility] [place] [address] [place] [address] 01/06/2023 11:36:12 01/06/2023 12:18:23 Pain of right knee joint [id number] 17422 M25.886 [id number] Avila Restrepo MD [facility] [place] [address] [place] [address] 01/27/2023 11:48:15 01/27/2023 12:05:30 Pain of right knee joint 1202474185 43590 M25.561 Health Concerns Section Related Observation LastModified by Organization Detai ls LastModified Time None Recorded Concern Status LastModified by Organization Details LastModified Time None Recorded Advance Directives Directive None Recorded Payers Encounter Date Sequence Insurance Name Policy Number Policy Johnson Covered Member ID Johnsno Member ID Guarantor Name 01/06/2023 1 [employer] - [facility]ARE [place]PLAC[place] [id number] Lito Nova Sr [id number] Lito Nova 01/27/2023 1 [employer] - [facility] [place] [id number] Lito Nova Sr [id number] Lito Nova
[2024-09-07 11:15] LABS: Basophils Percent Auto 0.6 % (0.2-1.2); Eosinophils Absolute Auto 0.2 K/mm3 (0-0.3); Hematocrit 34.6 % (42.0-52.0); Hemoglobin 11.1 g/dL (14.0-18.0); Immature Granulocyte Absolute 0.01 K/mm3 (0.00-0.031); Immature Granulocyte Percent A 0.2 % (0-0.5); Lymphocytes Percent Auto 19.7 % (18.3-44.2); Mean Corpuscular HGB Conc 32.1 g/dl (32-36); Mean Corpuscular Hemoglobin 32.7 pg (26-34); Mean Corpuscular Volume 102.1 fl (80-100); Mean Platelet Volume 10.4 fl (7.4-10.4); Monocytes Absolute Auto 0.6 K/mm3 (0.1-0.6); Monocytes Percent Auto 10.8 % (2.6-8.5); Neutrophils Absolute Auto 3.3 K/mm3 (1.3-6.7); Neutrophils Percent Auto 65.7 % (45.5-73.1); Platelet Count Result 131 k/mm3 (150-375); Red Blood Count 3.39 M/mm3 (4.6-6.20); Red Cell Distribution Width 13.8 % (11.5-14.5); White Blood Count 5.1 K/mm3 (4.5-10.0)
[2024-09-07 11:24] LABS: Anion Gap 11 mmol/L (4-12); Blood Urea Nitrogen 28 mg/dL (9-20); Calcium 8.1 mg/dL (8.4-10.2); Carbon Dioxide 19 mmol/L (22-30); Chloride 111 mmol/L (98-107); Estimated Glomerular Filt Rate 54; Glucose 93 mg/dL (65-110); Potassium 4.6 mmol/L (3.4-5.0); Sodium 141 mmol/L (137-145)
== END 2024-09-07 10:57 | disposition home or self-care (01) ==
PROVIDERS: Nurse Practitioner; PCP Internal Medicine; Visit Provider Internal Medicine
DX: E87.6 Hypokalemia (principal); Z79.899 Other long term (current) drug therapy; J86.9 Pyothorax without fistula; Z13.228 Encounter for screening for other metabolic disorders; E87.1 Hypo-osmolality and hyponatremia; D64.9 Anemia, unspecified; R79.9 Abnormal finding of blood chemistry, unspecified
CPT/HCPCS: 36415; 80048; 85025

== ENCOUNTER 2024-09-12 14:21 | Outpatient (CLI) | payer MEDICARE, SELFPAY ==
--- OUTSIDE RECORDS SUMMARY | 2024-09-12 14:28 | XMS_ITS | Referral Summary ---
Author Organization [facility] Physician Office Building [address] [place] [address] Care Team Providers Care Product Builder Name Role Phone Williams Livingston Primary Care Provider [phone] Allergies No known active allergies Medications diclofenac [...] 04/29/2023 Assessment & Plan (04/29/2023 11:25 AM BIZTALK DEVELOPER): 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 He does have chondrocalcinosis which can be seen with thyroid or parathyroid disease causing pseudogout. After reviewing the treatment options patient elected undergo a cortisone injection today to the severity of his symptoms. He tolerated the procedure well. Bifascicular block 04/21/2023 Assessment & Plan (04/21/2023 10:48 AM BIZTALK DEVELOPER): Stable/asymptomatic. No current indication for pacing. Observation. Localized swelling of left lower extremity 03/21 Moderate protein-calorie malnutrition 03/19/2023 Paroxysmal atrial fibrillation 03/19/2023 Assessment & Plan (04/21/2023 10:47 AM BIZTALK DEVELOPER): Stable. No recurrence. Recommend rate control, anticoagulation and observation for now. --Continue metoprolol 50 mg BID --Continue apixaban 5 mg BID Pleural effusion 03/14/2023 Atrial fibrillation with RVR 03/14/2023 Cigar smoker 03/14/2023 Renal azotemia 03/14/2023 Hypokalemia 03/14/2023 Right wrist fracture, sequela 03/14/2023 Fracture, Colles, right, closed 03/01/2023 Assessment & Plan (03/01/2023 11:10 AM BIZTALK DEVELOPER): Patient's CT scan does show evidence of [...] uit: Not Asked; Counseling Given: Not Answered [facility] Utilities Answer Date Recorded In the past [...] often do you attend chur ch or taoism services? Never 03/16/2023 Do you belong to any clubs o r organizations such as anabaptist groups, unions, fraternal or athletic groups, or [...] place to sleep or slept in a long term (including now)? No 03/16/2023 Personal Safety Answer Date Recorded Have you ever been in or are you currently in a harmful physical or emotional relationship or is someone making you feel afraid or unsafe? Denies 03/14/2023 Sex and Gender Information Value Date Recorded Sex Assigned at Not on file Legal Sex Male 11:26 AM BIZTALK DEVELOPER Gender Identity Male 02/26/2023 10:32 AM BIZTALK DEVELOPER Sexual Orientation Straight 04/21/2023 6: 30 AM BIZTALK DEVELOPER Last Filed Vital Signs Vital Sign Reading Time Taken Comments Blood Pressure 150/70 04/21/2023 10:30 AM BIZTALK DEVELOPER Pulse 55 04/21/2023 10:30 AM BIZTALK DEVELOPER Temperature 36.8 C (98.3 F) 03/22/2023 12:18 PM BIZTALK DEVELOPER Respiratory Rate 18 03/22/2023 12:18 PM BIZTALK DEVELOPER Oxygen Saturation 99% 04/21/2023 10:30 AM BIZTALK DEVELOPER Inhaled Oxygen Concentration - - Weight 79.8 kg (176 lb) 09/27/2023 9:01 AM CDT Height 177.8 cm (5' 10) 10/06/2023 11:16 AM CDT Body Mass Index 25.25 09/27/2023 9:01 AM CDT Plan of Treatment Not on file [place] [id number] [place] Advance Directives For more information, please contact: [phone] * Full Code (Latest Code Status on File) Date Activated Date Inactivated Comments 03/14/2023 2:33 AM 03/22/2023 6:09 PM Care Teams Product Builder Relationship Specialty Start Date End Date Williams Livingston DO [facility] [address] [address] PCP - General Family Medicine 02/26/23
--- OUTSIDE RECORDS SUMMARY | 2024-09-12 14:28 | XMS_ITS | Clinical Summary ---
Author Organization [facility] Physician Office Building [address] [place] [address] Care Team Providers Care Rpg Programmer Analyst Name Role Phone Williams Livingston Primary Care Provider Allergies No known active allergies Medications diclofenac [...] 04/29/2023 Assessment & Plan (04/29/2023 11:25 AM LIFESTYLE COORDINATOR): 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 He does have chondrocalcinosis which can be seen with thyroid or parathyroid disease causing pseudogout. After reviewing the treatment options patient elected undergo a cortisone injection today to the severity of his symptoms. He tolerated the procedure well. Bifascicular block 04/21/2023 Assessment & Plan (04/21/2023 10:48 AM LIFESTYLE COORDINATOR): Stable/asymptomatic. No current indication for pacing. Observation. Localized swelling of left lower extremity 03/21 Moderate protein-calorie malnutrition 03/19/2023 Paroxysmal atrial fibrillation 03/19/2023 Assessment & Plan (04/21/2023 10:47 AM LIFESTYLE COORDINATOR): Stable. No recurrence. Recommend rate control, anticoagulation and observation for now. --Continue metoprolol 50 mg BID --Continue apixaban 5 mg BID Pleural effusion 03/14/2023 Atrial fibrillation with RVR 03/14/2023 Cigar smoker 03/14/2023 Renal azotemia 03/14/2023 Hypokalemia 03/14/2023 Right wrist fracture, sequela 03/14/2023 Fracture, Colles, right, closed 03/01/2023 Assessment & Plan (03/01/2023 11:10 AM LIFESTYLE COORDINATOR): Patient's CT scan does show evidence of [...] uit: Not Asked; Counseling Given: Not Answered [facility] Utilities Answer Date Recorded In the past 12 months has th e electric, gas, oil, or water WhoJam threatened to shut off services in your [...] often do you attend chur ch or adventist services? Never 03/16/2023 Do you belong to any clubs o r organizations such as sikhism groups, unions, fraternal or athletic groups, or [...] place to sleep or slept in a intermediate (including now)? No 03/16/2023 Personal Safety Answer Date Recorded Have you ever been in or are you currently in a harmful physical or emotional relationship or is someone making you feel afraid or unsafe? Denies 03/14/2023 Sex and Gender Information Value Date Recorded Sex Assigned at Not on file Legal Sex Male 11:26 AM LIFESTYLE COORDINATOR Gender Identity Male 02/26/2023 10:32 AM LIFESTYLE COORDINATOR Sexual Orientation Straight 04/21/2023 6: 30 AM LIFESTYLE COORDINATOR Obstetrics History Last Filed Vital Signs Vital Sign Reading Time Taken Comments Blood Pressure 150/70 04/21/2023 10:30 AM LIFESTYLE COORDINATOR Pulse 55 04/21/2023 10:30 AM LIFESTYLE COORDINATOR Temperature 36.8 C (98.3 F) 03/22/2023 12:18 PM LIFESTYLE COORDINATOR Respiratory Rate 18 03/22/2023 12:18 PM LIFESTYLE COORDINATOR Oxygen Saturation 99% 04/21/2023 10:30 AM LIFESTYLE COORDINATOR Inhaled Oxygen Concentration - - Weight 79.8 [...] Advance Directives For more information, please contact: [phone] * Full Code (Latest Code Status on File) Date Activated Date Inactivated Comments 03/14/2023 2:33 AM 03/22/2023 6:09 PM Care Teams Rpg Programmer Analyst Relationship Specialty Start Date End Date Williams Livingston DO [address] [place] [address] [address] [id number] PCP - General Family Medicine 02/26/23
[2024-09-12 19:14] LABS: Basophils Percent Auto 0.6 % (0.2-1.2); Eosinophils Absolute Auto 0.2 K/mm3 (0-0.3); Eosinophils Percent Auto 3.6 % (0-4.4); Hematocrit 37.3 % (42.0-52.0); Hemoglobin 11.9 g/dL (14.0-18.0); Immature Granulocyte Absolute 0.01 K/mm3 (0.00-0.031); Immature Granulocyte Percent A 0.2 % (0-0.5); Lymphocytes Percent Auto 16.9 % (18.3-44.2); Mean Corpuscular HGB Conc 31.9 g/dl (32-36); Mean Corpuscular Hemoglobin 32.3 pg (26-34); Mean Corpuscular Volume 101.4 fl (80-100); Monocytes Absolute Auto 0.6 K/mm3 (0.1-0.6); Monocytes Percent Auto 10.5 % (2.6-8.5); Neutrophils Absolute Auto 3.7 K/mm3 (1.3-6.7); Neutrophils Percent Auto 68.2 % (45.5-73.1); Platelet Count Result 141 k/mm3 (150-375); Red Blood Count 3.68 M/mm3 (4.6-6.20); Red Cell Distribution Width 13.9 % (11.5-14.5); White Blood Count 5.3 K/mm3 (4.5-10.0)
[2024-09-12 22:25] LABS: Free T3 3.08 pg/mL (2.34-5.61); Magnesium 1.1 mg/dL (1.6-2.3)
[2024-09-12 23:28] LABS: Folic Acid > 20.0 ng/mL (2.76->20)
[2024-09-17 11:48] LABS: Testosterone Free 25 pg/mL (30.0-135.0); Testosterone Total 273 ng/dL (250-1100)
== END 2024-09-12 14:22 | disposition home or self-care (01) ==
PROVIDERS: PCP Internal Medicine; Visit Provider Internal Medicine
DX: E83.42 Hypomagnesemia (principal); D64.9 Anemia, unspecified; M62.84 Sarcopenia; R53.83 Other fatigue
CPT/HCPCS: 36415; 82607; 82728; 82746; 83735; 84402; 84403; 84439; 84443; 84481; 85025

== ENCOUNTER 2024-12-13 08:53 | Emergency (ER) | payer MEDICARE, SELFPAY ==
--- NOTE | ~2024-12-13 | XR_ITS ---
EXAM/ PROCEDURE: XR toe 5th RT min 2V - 12/13/2024 9:30 CDT HISTORY: 84 years old Male with injury 2 days ago, pain and bruising, hit on cane while walk COMPARISON: None available TECHNIQUE: Three view(s) FINDINGS/ IMPRESSION: There are no fractures or dislocations.Joint space narrowing, subchondral sclerosis, subchondral cyst formation and osteophyte formation, compatible with mild osteoarthritis. Diffuse osteopenia. Reviewed, dictated and finalized at location N.
[2024-12-13 09:05] VITALS: BP 169/87; PULSE 76; RESP 16; TEMP 36.3; O2SAT 100
--- NOTE | 2024-12-13 09:23 | ED.LOWEXIN ---
HPI - Extremity Injury (Lower) General Chief Complaint: Extremity Injury, Lower Stated Complaint: R TOE INJURY Time Seen by Provider: 12/13/24 09:23 Source: patient and RN notes reviewed Mode of arrival: ambulatory Limitations: no limitations History of Present Illness HPI Narrative: 84-year-old male Presents Express Care complaining of injury to right pinky toe. Patient reports 2 days ago he accidentally struck his right pinky toe with his cane. Since then the patient has pain in bruising to his pinky toe. Patient says he can bear weight okay but there is some discomfort with ambulating. Patient denies any numbness, tingling or any other injuries. Patient denies any significant past medical history. Related Data Home Medications ?Medication ?Instructions ?Recorded ?Confirmed ?Last Taken ?Type naproxen 500 mg tablet 500 mg PO PRN 03/15/24 09/19/24 Unknown History magnesium oxide 400 mg (241.3 mg 400 mg PO DAILY 09/18/24 09/19/24 Unknown History magnesium) tablet Allergies Allergy/AdvReac Type Severity Reaction Status Date / Time No Known Allergies Allergy Verified 12/13/24 09:18 Review of Systems Review of Systems: CONSTITUTIONAL: Denies fever, chills, or sweats. EYES: Denies visual changes, redness, or discharge. ENT: Denies rhinorrhea, congestion, sore throat, or otalgia. CARDIOVASCULAR: Denies chest pain, palpitations, or edema. RESPIRATORY: Denies cough or dyspnea. GASTROINTESTINAL: Denies abdominal pain, nausea, vomiting, or diarrhea. GENITOURINARY: Denies dysuria or hematuria. SKIN: Denies rash, wound, or itching. MUSCULOSKELETAL: Denies back pain, joint pain, or myalgia. Positive for right pinky toe injury and swelling NEUROLOGIC: Denies headache, numbness, or weakness. PSYCHIATRIC: Denies anxiety or depression. All other systems reviewed are negative, except as documented in HPI. [facility] Past Medical History Medical History Long-term current use of testosterone cypionate Hypogonadism in male Chronic kidney disease, stage 3a Empyema lung Tibial plateau fracture Laceration of leg, right, multiple sites Cervical paraspinal muscle spasm Folliculitis Gout Surgical History Surgical History History of weight loss surgery Hx of cataract surgery History of appendectomy Male erectile disorder Family History Family History Sibling Patient's sister is in good health Family history of cardiovascular disease, Onset Age: 42 Mother Family history of malignant neoplasm, Onset Age: 72 Father Family history of malignant neoplasm, Onset Age: 75 Social History Social History Social History: Former long distance runner Smoking status: Former smoker Tobacco type: cigars Second hand tobacco smoke exposure: No Smoking end date: 04/12/77 Alcohol intake: current Substance use: never Substance use type: does not use Lack of Transportation: No Lack of Food: Never True Current Housing: I Have Housing Concerned About Future Housing: No Difficulty Paying Gas/Electric Bills: No Difficulty Paying for Meds: No Currently Unemployed: No Education: Master's Degree or Higher Difficulty w/ Childcare or Family Care: No Living arrangements: with family Occupation/Education: retired Gender identity (if verbalized by the patient): Male Sexual Orientation (if Verbalized by the Patient): Straight or Heterosexual Agree to blood products: Yes Comments At the time of my signature, I reviewed and agree with the nursing past medical, surgical, social, and family history. There is no relevant family history pertinent to the patient complaint. Exam Narrative: GENERAL: This is a well-nourished, well-developed adult, in no apparent distress. They are non ill-appearing, nontoxic appearing. HEAD: normocephalic, atraumatic. EYES: Sclera clear/white. Vision is grossly intact. Conjunctiva normal. Extraocular movement intact. EARS: External ears normal Hearing grossly intact. NOSE: External nose normal THROAT: Mucous membranes moist NECK: Neck supple CARDIOVASCULAR: Regular rate and rhythm RESPIRATORY: Respiratory rate normal, respiratory effort nonlabored, no respiratory distress NEURO: awake, alert, and oriented to person, place and time. There were no obvious focal neurologic abnormalities. EXTREMITIES: Right foot: No obvious deformity, injury, or redness. There is mild bruising and swelling to the 5th toe. Normal range of motion. Mild tenderness to the 5th toe. Capillary refill less than 3 seconds. Right pedal Pulse 2 +palpable. Normal sensation. Neurovascular status intact distal injury. Patient able to wiggle his toes BACK: Nontender without deformity. Course Course Emergency Course: Portions of this record may have been created with voice recognition software Level of Care: Express Care Visit Vital Signs Vital signs: Vital Signs Temperature 97.4 F L 12/13/24 09:05 Pulse Rate 76 12/13/24 09:05 Respiratory Rate 16 12/13/24 09:05 Blood Pressure 169/87 H 12/13/24 09:05 Pulse Oximetry 100 12/13/24 09:05 Temperature 97.4 F L 12/13/24 09:05 Pulse Rate 76 12/13/24 09:05 Respiratory Rate 16 12/13/24 09:05 Blood Pressure 169/87 H 12/13/24 09:05 Pulse Oximetry 100 12/13/24 09:05 Reviewed MDM - Extremity Injury (Lower) MDM Narrative Medical decision making narrative: X-ray of right 5th toe negative for any fractures or acute findings. Osteopenia incidental finding noted. Likely toe contusion. Discussed physical exam findings. Advised supportive measures and signs/symptoms to go to the ER. Pt is appropriate for outpt treatment and f/u. Differential Diagnosis Differential diagnosis: Likely other (Toe fracture, toe contusion, toe sprain, foot fracture) Imaging Data Radiologist's impression: FINDINGS/ IMPRESSION: There are no fractures or dislocations.Joint space narrowing, subchondral sclerosis, subchondral cyst formation and osteophyte formation, compatible with mild osteoarthritis. Diffuse osteopenia. Critical Care Time Critical Care Time Critical Care Time: No Discharge Plan Discharge Clinical Impression: Contusion of toe of right foot Patient Disposition: Home Condition: Stable Instructions: Foot Contusion (ED) Additional Instructions: The x-ray of your right pinky toes is negative for any fractures or acute findings. Rest and elevate the leg; bear weight as tolerated Apply ice 15-20 minute intervals several times a day You may take ibuprofen 600 mg to 800 mg every 6-8 hours. Do not exceed more than 800 mg of ibuprofen per dose. Do not exceed more than 3200 mg ibuprofen in a day. You may take up to 1000 mg Tylenol every 6-8 hours. Do not exceed 1000 mg per dose, do exceed more than 4000 mg of Tylenol in a day. Follow up with your primary care provider as needed in 1-2 weeks Patient Language: Sierra Leonean Prescriptions: No Action naproxen 500 mg tablet 500 mg PO PRN potassium chloride 20 mEq tablet extended release 20 meq PO DAILY Qty: 30 5RF mecobalamin (vitamin B12) 1,000 mcg tablet,chewable 1,000 mcg PO DAILY Qty: 90 1RF magnesium oxide 400 mg (241.3 mg magnesium) tablet 400 mg PO DAILY Follow-up/Referrals: Avila Glover DO [Primary Care Provider, Internal Medicine] Time of Disposition: 09:54
== END 2024-12-13 09:57 | disposition home or self-care (01) ==
PROVIDERS: PCP Internal Medicine
DX: S90.121A Contusion of right lesser toe(s) without damage to nail, initial encounter (principal); W22.8XXA Striking against or struck by other objects, initial encounter; N18.31 Chronic kidney disease, stage 3a; M10.9 Gout, unspecified; Z87.891 Personal history of nicotine dependence
CPT/HCPCS: 73660; 99213; G0463

== ENCOUNTER 2025-01-15 11:27 | Outpatient (CLI) | payer MEDICARE, SELFPAY ==
[2025-01-15 12:52] LABS: Hematocrit 34.8 % (42.0-52.0); Hemoglobin 11.4 g/dL (14.0-18.0); Immature Granulocyte Percent A 0.3 % (0-0.5); Lymphocytes Absolute Auto 0.57 K/mm3 (0.9-3.2); Mean Corpuscular HGB Conc 32.8 g/dl (32-36); Mean Corpuscular Hemoglobin 33.2 pg (26-34); Mean Corpuscular Volume 101.5 fl (80-100); Nucleated Red Blood Cells Absolute Auto 0.000 K/mm3 (0.0-0.012); Nucleated Red Blood Cells Perc 0.0 % (0.0-0.2); Platelet Count Result 156 k/mm3 (150-375); Red Blood Count 3.43 M/mm3 (4.6-6.20); White Blood Count 6.9 K/mm3 (4.5-10.0)
--- OUTSIDE RECORDS SUMMARY | 2025-01-15 13:04 | XMS_ITS | Data Portability ---
Author Organization [place] [facility], Main Office Address [address] [place] [address] Care Team Providers Care [place] Program Coordinator Name Role Phone SRIDHAR BOURGEOIS Primary Care Provider SRIDHAR BOURGEOIS Referring Provider [phone] Assessment Encounter Date Assessment Date Assessment LastModified [...] schedule. Thanks EVAL AND TREAT [address] [facility], [address], [place], [address], 15:16:52 Procedures None recorded. Surgeries None recorded. Imaging None recorded. Medication Orders meloxicam 15 mg tablet 2022 023 [email or web address] [employer] [id number], [address], [place], [place], [id number], 23:53:09 Patient TargetsNo targets recorded. Patient InstructionsNo [...] Recorded Time Pain of right knee joint [id number] Active 2022 DON[place]O [place] [employer] [facility] 11:54:52 Problem Notes None recorded. Medical [...] Updated DateTime 01/06/2023 177.8 cm 26.1 kg/m2 33394.81 g DONATO [place] [facility] [employer] [facility] 01/06/2023 11:52:32 Date Recorded Body height Body mass index (BMI) Body weight Pain severity - 0-10 verbal numeric rating [Score] - Reported Provider Name and Address Organization Details Last Updated DateTime 01/27/2023 177.8 cm 25.8 kg/m2 04580.63 g 1 DONATO [place] [facility] [employer] [facility] 01/27/2023 11:50:59 Social History Question Answer Notes LastModified by Organizat ion Details LastModified Time Tobacco Smoking Status Current Every Day Smoker DONATO [place] [facility] [employer] [facility] 01/06/2023 11:53:41 What Was The Date Of Your Most Recent Tobacco Screening? 01/06/2023 [email or web address] Information not available 01/06/2023 Sex: Unknown Functional Status Question Answer Note LastModified by Organization D etails LastModified Time What is your level of alcohol consumption? Moderate Information not available 01/06/2023 Mental Status None recorded. Family History Nothing Reported. Medical History No medical history recorded. Past Encounters Encounter ID Performer Location Encounter Start Date Encounter Closed Date Diagnosis/Indication Diagnosis SNOMED-CT Code Diagnosis ICD10 Code Diagnosis IMO Codes Diagnosis Note [id number] Avila Restrepo MD [facility] [place] [address] [place] [address] 01/06/2023 11:36:12 01/06/2023 12:18:23 Pain of right knee joint [id number] 44682 M25.092 [id number] Avila Restrepo MD [facility] [place] [address] [place] [address] 01/27/2023 11:48:15 01/27/2023 12:05:30 Pain of right knee joint 8040497780 67909 M25.561 Health Concerns Section Related Observation LastModified by Organization Detai ls LastModified Time None Recorded Concern Status LastModified by Organization Details LastModified Time None Recorded Advance Directives Directive None Recorded Payers Insurance Date Sequence Insurance Name Policy Number Policy Johnson Covered Member ID Johnson Member ID Guarantor Name 03/01/2023 1 [employer] [place] [facility]MED[place]ARE [place]ACEMENT PPO) [id number] Lito Nova [id number] Lito Nova
--- OUTSIDE RECORDS SUMMARY | 2025-01-15 13:04 | XMS_ITS | Clinical Summary ---
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 Gender Identity Not on file Sexual Orientation Not on file Plan of Treatment Health Maintenance Due Date Last Done Comments DTaP, Tdap and Td Vaccines ( 1 - Tdap) 1957 Pneumococcal Vaccine: 50+ Ye ars (1 of 1 - PCV) 1988 Zoster Vaccines (1 of 2) 1988 Annual Medicare Wellness Visit 12/08/2003 RSV Immunization or 60+ Years (1 - 1-dose 75+ series) 2013 COVID-19 Vaccine (2023-2 5 season) 2024 Influenza Adult (#1) 2025 Meningococcal B Vaccine Aged Out No l onger eligible based on patient's age to complete this topic Meningococcal Vaccine Aged Out No deirdre charli eligible based on patient's age to complete this topic RSV Immunizations Under 20 Months Aged Out No longer eligible based on patient's age to complete this topic Insurance BLUE [employer]OSS BLUE [employer]IELD MEDICARE KATHARINA ARAGON [facility] Care Teams Tire Shop Manager Relationship Specialty Start Date End Date Williams Livingston DO [facility] [address] [address] [place] [id number] PCP - General FAMILY PRACTICE 02/26/23
--- OUTSIDE RECORDS SUMMARY | 2025-01-15 13:04 | XMS_ITS | Clinical Summary ---
Author Organization [facility] [address] [place] [id number] Care Team Providers Care Quarry Supervisor Dimension Stone Name Role Phone OmarWilliams rucker Primary Care Provider [phone] Allergies No known active allergies Medications diclofenac [...] with meals 60 tablet 2 4 Active magnesium oxide 200 mg magnesium tablet,chewable 5 Active creatine, bulk, 100 % powder 5 Active N11-oppludrcqfq hydrofolate-B6 1,000mcg-680mcg DFE-1.5 mg tablet,chewable 5 Active Active Problems Problem Noted Date Diagnosed [...] 04/29/2023 Assessment & Plan (04/29/2023 11:25 AM CHUMMER): 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 He does have chondrocalcinosis which can be seen with thyroid or parathyroid disease causing pseudogout. After reviewing the treatment options patient elected undergo a cortisone injection today to the severity of his symptoms. He tolerated the procedure well. Bifascicular block 04/21/2023 Assessment & Plan (04/21/2023 10:48 AM CHUMMER): Stable/asymptomatic. No current indication for pacing. Observation. Localized swelling of left lower extremity 03/21 Moderate protein-calorie malnutrition 03/19/2023 Paroxysmal atrial fibrillation 03/19/2023 Assessment & Plan (04/21/2023 10:47 AM CHUMMER): Stable. No recurrence. Recommend rate control, anticoagulation and observation for now. --Continue metoprolol 50 mg BID --Continue apixaban 5 mg BID Pleural effusion 03/14/2023 Atrial fibrillation with RVR 03/14/2023 Cigar smoker 03/14/2023 Renal azotemia 03/14/2023 Hypokalemia 03/14/2023 Right wrist fracture, sequela 03/14/2023 Fracture, Colles, right, closed 03/01/2023 Assessment & Plan (03/01/2023 11:10 AM CHUMMER): Patient's CT scan does show evidence of [...] 3-4 weeks. Arthralgia of right knee 01/06/2023 Encounters Date Type Department Care Team Description 11/01/2024 1:31 PM CDT - 11/01/2024 11:59 PM CDT Hospital Encounter [facility] [address] [place] [phone] Discharge Disposition: Discharge to home or self care 11/01/2024 1:15 PM CDT Office Visit [facility] at [address] [phone] Brittani Roper MD Left knee pain, unspecified chronicity (Primary Dx) from Last 3 Months Surgical History Surgery Date Site/Laterality Comments APPENDECTOMY 04/12/1951 - 04[birth year]11/1954 Medical History Medical History Date Comments Arthritis Family History Medical History Relation Name Comments No Known Problems Father No Known Problems Mother Relation Name Status Comments Father Mother Social History Tobacco Use Types Packs/Day Years Used Date Smoking Tobacco: Some Days Cigars Tobacco Cessation:Ready to Q uit: Not Asked; Counseling Given: Not Answered [facility] Utilities Answer Date Recorded In the past 12 months has [employer], oil, or water [employer] threatened to shut off services in your home? No 03/16/2023 Social Connection and Isolation Panel Answer Date Recorded In a typical week, how many times do you talk on the phone with family, friends, or neighbors? More than three times a week 03/16/2023 How often do you get togethe r with friends or relatives? Never 03/16/2023 How often do you attend [facility] or restorationist services? Never 03/16/2023 Do you belong to any clubs o r organizations such as congregational groups, unions, fraternal or athletic groups, or [...] place to sleep or slept in a alf (including now)? No 03/16/2023 Personal Safety Answer Date Recorded Have you ever been in or are you currently in a harmful physical or emotional relationship or is someone making you feel afraid or unsafe? Denies 03/14/2023 Sex and Gender Information Value Date Recorded Sex Assigned at Not on file Legal Sex Male 11:26 AM CHUMMER Gender Identity Male 02/26/2023 10:32 AM CHUMMER Sexual Orientation Straight 04/21/2023 6: 30 AM CHUMMER Obstetrics History Last Filed Vital Signs Vital Sign Reading Time Taken Comments Blood Pressure 150/70 04/21/2023 10:30 AM CHUMMER Pulse 55 04/21/2023 10:30 AM CHUMMER Temperature 36.8 C (98.3 F) 03/22/2023 12:18 PM CHUMMER Respiratory Rate 18 03/22/2023 12:18 PM CHUMMER Oxygen Saturation 99% 04/21/2023 10:30 AM CHUMMER Inhaled Oxygen Concentration - - Weight 75.8 kg (167 lb) 11/01/2024 1:19 PM CDT Height 177.8 cm (5' 10) 11/01/2024 1:19 PM CDT Body Mass Index 23.96 11/01/2024 1:19 PM CDT Plan of Treatment Health Maintenance Due Date Last Done Comments Depression Screening 1940 Hepatitis B Screening 1956 Zoster Vaccine (1 of 2) 1988 Well Visit 65+ 12/08/2003 DTaP/Tdap/Td Vaccine (1 - Tdap) 10/18/2015 6 Fall Risk Assessment 03/22/2024 03/22/2023 Covid-19 Vaccine (2023-05 5 season) 2024 12/27/2023, 02/03/2023, 01/01/2022, Additional history exists Influenza Vaccine (#1) 2024 , 02/03/2023, 01/01/2022, Additional history exists Pneumococcal vaccine 65+ Completed 024, 02/07/2019, 02/03/2017 [place] [address] [employer] KATHARINA [place] [id number] [place] [address] [facility] MEDICARE [place] KATHARINA AR[place]ON [id number] Advance Directives For more information, please contact: [phone] * Full Code (Latest Code Status on File) Date Activated Date Inactivated Comments 03/14/2023 2:33 AM 03/22/2023 6:09 PM Care Teams Quarry Supervisor Dimension Stone Relationship Specialty Start Date End Date Williams Livingston DO [facility] [place] [address] PCP - General Family Medicine 02/26/23
[2025-01-15 13:06] LABS: Alanine Aminotransferase 24 U/L (6-50); Albumin Level 4.2 g/dL (3.5-5.1); Alkaline Phosphatase 87 U/L (38-126); Anion Gap 13 mmol/L (4-12); Aspartate Amino Transferase 40 U/L (17-59); Bilirubin,Total 1.3 mg/dL (0.2-1.3); Blood Urea Nitrogen 35 mg/dL (9-20); Calcium 8.5 mg/dL (8.4-10.2); Carbon Dioxide 19 mmol/L (22-30); Chloride 106 mmol/L (98-107); Estimated Glomerular Filt Rate 44; Glucose 103 mg/dL (65-110); Magnesium 1.3 mg/dL (1.6-2.3); Potassium 4.2 mmol/L (3.4-5.0); Sodium 138 mmol/L (137-145); Total Protein 7.3 g/dL (6.3-8.2)
[2025-01-15 14:19] LABS: Vitamin B12 209.0 pg/mL (239-931)
== END 2025-01-15 11:28 | disposition home or self-care (01) ==
PROVIDERS: PCP Internal Medicine; Visit Provider Internal Medicine
DX: D69.6 Thrombocytopenia, unspecified (principal); N18.31 Chronic kidney disease, stage 3a; E83.42 Hypomagnesemia; D64.9 Anemia, unspecified
CPT/HCPCS: 36415; 80053; 82607; 82746; 83735; 85025